=== PATIENT | male | born 1985 | race Caucasian/White ===

== ENCOUNTER → 2021-01-10 15:43 | Outpatient (CLI) | payer OTHER, SELFPAY ==
--- NOTE | 2021-01-10 15:48 | DI.ECHO.S_ITS ---
[place] +---------+ : : [address] : [address] : : : : [id number] : : : : Phone: [phone]+ Echocardiogram Report + + :Name: TANA SIERRA Study Date: 01/10/2021 Height: 68 in : :[facility] ReadingLocation: Weight: 220 lb : : Gender: Male BSA: 2.1 m2 : :: 1985 Age: 35 yrs BP: 128/81 mmHg: :Reason For Study: DYPSNEA : :Ordering Physician: JACE, : :AGUILAR Performed By: Araseli Guzman : :Referring: AGUILAR FRANCO : + + Interpretation Summary 1) Normal left ventricular thickness, size, wall motion, and systolic function (EF 55-60%). 2) Normal right ventricular size and function. 3) No significant valvular abnormalities. 4) No prior Echo available for comparison. Procedure: A two-dimensional transthoracic echocardiogram with color flow and Doppler was performed. The study quality was technically adequate. There is no prior echocardiogram noted for this patient. The patient was in sinus rhythm with heart rates between 63-79 bpm during the exam. Left Ventricle: The left ventricle is normal in size and wall thickness. The ejection fraction is estimated to be 55-60%. Left ventricular systolic function appears normal without focal wall motion abnormalities. Diastolic parameters suggest probable normal left ventricular diastolic function and normal filling pressures. Right Ventricle: The right ventricle is normal in size and function. Atria: Both atria are normal in size. There is no Doppler evidence for an interatrial shunt. Mitral Valve: The mitral valve is normal in structure and function. There is no mitral regurgitation noted. Aortic Valve: The aortic valve is trileaflet. The aortic valve opens well. There is no aortic valve stenosis. There is trace aortic regurgitation. Tricuspid Valve: The tricuspid valve is normal in structure and function. There is mild tricuspid regurgitation. Right ventricular systolic pressure is estimated to be 18.7 mmHg plus the clinically estimated CVP which cannot be estimated on this exam. Pulmonic Valve: The pulmonic valve leaflets are thin and pliable; valve motion is normal. There is no pulmonic valvular regurgitation. Great Vessels: The aortic root is normal size. The dimensions of the ascending aorta are normal. The inferior vena cava was not well visualized. Pericardium/ Pleura There is no pericardial effusion. There is no pleural effusion. MMode/2D Measurements & Calculations LVIDd: 3.8 cm LVOT diam: 2.1 cm LVIDs: 2.6 cm Ao root diam: 3.3 cm FS: 30.6 % asc Aorta Diam: 2.7 cm EPSS: 1.1 cm Ao Arch Diam (Prox Trans): 2.7 cm IVSd: 1.1 cm LVPWd: 0.91 cm LV gongora. diameter/BSA (cm/m^2): 1.8 LV sys. diameter/BSA (cm/m^2): 1.2 LA A2 area: 16.1 cm2 RA long axis: 5.2 cm LA A4 area: 16.8 cm2 RA area: 16.7 cm2 LA length (vol): 5.6 cm RA vol: 45.3 ml LA vol: 41.4 ml RA : 21.3 ml/m2 LA vol index: 19.4 ml/m2 RVD1 (basal): 3.4 cm TAPSE: 1.8 cm Doppler Measurements & Calculations Ao V2 max: 118.1 cm/sec LVOT Max Neptali: 90.5 cm/sec Ao V2 mean: 76.8 cm/sec LV V1 max P.3 mmHg Ao max P.6 mmHg LV V1 VTI: 18.0 cm Ao mean P.7 mmHg ARUN(I,D): 2.9 cm2 Ao V2 VTI: 21.5 cm ARUN(V,D): 2.6 cm2 sev ratio: 0.84 ARUN indexed to BSA (cm^2/m^2): 1.3 MV E max neptali: 61.2 cm/sec TR max neptali: 216.3 cm/sec MV A max neptali: 65.5 cm/sec TR max P.7 mmHg MV E/A: 0.93 PA V2 max: 64.7 cm/sec Med Peak E' Neptali: 11.0 cm/sec PA V2 mean: 42.0 cm/sec E/E' med: 5.6 PA mean P.84 mmHg Lat Peak E' Neptali: 13.1 cm/sec PA pr(Accel): 43.0 mmHg E/E' lat: 4.7 E/e' average: 5.1 MV dec time: 0.15 sec SV(LVOT): 61.7 ml Reading Physician:09:15 AM
== END ==
PROVIDERS: Referring Provider Internal Medicine Cardiovascular Disease; Visit Provider Internal Medicine Cardiovascular Disease
DX: R06.00 Dyspnea, unspecified (principal)
CPT/HCPCS: 93306

== ENCOUNTER 2025-10-22 05:34 | Emergency (ER) | payer OTHER, SELFPAY ==
[2025-10-22 05:43] VITALS: PULSE 111; O2SAT 98
--- NOTE | 2025-10-22 05:43 | ED.GENADULT ---
HPI - General Adult General Chief complaint: Abdominal Pain Stated complaint: Bowel discomfort, frequent urination x1 Month Time Seen by Provider: 10/22/25 05:39
[2025-10-22 05:44] VITALS: BP 185/116; PULSE 112; O2SAT 96
[2025-10-22 05:51] VITALS: BP 185/116; PULSE 90; RESP 16; TEMP 36.3; O2SAT 97; BMI 30.4
--- NOTE | 2025-10-22 05:51 | DI.CT.S_ITS ---
PROCEDURE: CT ABDOMEN PELVIS W CON INDICATIONS: abd pain/pressure/urinary frequency intermittent TECHNIQUE: After the administration of intravenous contrast, axial sections acquired from the lung bases to the pubic symphysis. Coronal and sagittal reformats were performed. For radiation dose reduction, the following was used: automated exposure control, adjustment of mA and/or kV according to patient size. COMPARISON: None. FINDINGS: Image quality: Diagnostic. Lower Chest: No significant findings. ABDOMEN: Liver: No solid mass. Gallbladder: No radiopaque gallstones or wall thickening. Biliary ducts: No biliary dilation. Pancreas: No ductal dilation. Spleen: Size is within normal limits. Adrenal Glands: No adrenal nodules. Kidneys and Ureters: No hydronephrosis. No solid mass. No complex renal cystic lesion which requires follow up. Stomach and Bowel: Normal colonic caliber, without significant wall thickening. No inflammatory changes. Peritoneum: No abnormal intraperitoneal fluid. No free air. Ventral Wall: Fat containing ventral hernia. Abdominal Nodes: No retroperitoneal or mesenteric adenopathy by size criteria. Vessels: Aorta and inferior vena cava are normal in size. PELVIS: Pelvic Organs: Unremarkable. Bladder: No bladder wall thickening, accounting for underdistention. Pelvic Nodes: No enlarged lymph nodes. Miscellaneous: Fat containing inguinal hernias are seen. Bones: No aggressive osseous abnormality. IMPRESSION: No acute intra-abdominal or pelvic process. The above findings are concordant with preliminary report. Dictated by: Any Ruggiero M.D. on 10/22/2025 at 8:35 Approved by: Any Ruggiero M.D. on 10/22/2025 at 8:36
--- NOTE | 2025-10-22 05:52 | ED_ITS ---
HPI - Abdominal Pain General Chief Complaint: Abdominal Pain Stated Complaint: Bowel discomfort, frequent urination x1 Month Time Seen by Provider: 10/22/25 05:39 Source: patient, RN notes reviewed and old records reviewed Mode of arrival: Ambulatory Limitations: no limitations History of Present Illness HPI narrative: 40-year-old male history of hypertension and GERD presents with a complaint of a abdominal pressure intermittently. Patient notes times he will be somewhat constipated but not consistently he also notes he is sometimes as difficulty with urination has frequency, denies any dysuria or sense of urgency but we will feel like he has not completely emptying his bladder. Denies fevers or chills. He has had some nausea today but no vomiting. Denies any back or bloody stools. Patient states he had to assist himself to have a bowel movement earlier today. He states he has been drinking a lot of fluids to see if that improves his symptoms. He has had about a month of symptoms but had several episodes in the past with a prior to that as well. Patient states he has had a prior appendectomy. States he takes omeprazole and a medication for hypertension. Denies any allergies to medications. No tobacco, alcohol or recreational drugs. Related Data Allergies Allergy/AdvReac Type Severity Reaction Status Date / Time No Known Drug Allergies Allergy Verified 10/22/25 06:02 Review of Systems Review of Systems ROS Unobtainable: All systems reviewed & are unremarkable except as noted in HPI and below Exam Narrative Exam Narrative: GENERAL: Alert and oriented x three, male in mild distress HEENT: Head normocephalic, atraumatic, EOMI, pupils reactive, face symmetric, moist mucous membranes NECK: Supple, full range of motion CARDIOVASCULAR: Regular rate and rhythm without murmurs, rubs or gallops. RESPIRATORY: Breath sounds equal bilaterally, no wheezes rales or rhonchi. ABDOMEN: Soft, nontender. Non-distended. Normoactive bowel sounds all 4 quadrants. No guarding or rebound, rigidity, no mass : No CVA tenderness EXTREMITIES: Normal range of motion, no clubbing or edema. Neurovascularly intact NEUROLOGICAL: Cranial nerves II through XII grossly intact. Moving all extremities SKIN: Warm, dry, no petechiae, no rashes or lesions. Initial Vital Signs Initial Vital Signs: Vital Signs Temperature 97.4 F L 10/22/25 05:51 Pulse Rate 90 10/22/25 05:51 Respiratory Rate 16 10/22/25 05:51 Blood Pressure 185/116 H 10/22/25 05:51 Pulse Oximetry 97 10/22/25 05:51 Oxygen Delivery Method Room Air 10/22/25 05:51 Course Orders Ordered: ED Orders 10/22/25 05:51 CT abdomen pelvis w con Stat Complete Blood Count AUTO DIFF Stat Comprehensive Metabolic Panel Stat Lipase Stat Vital Signs Vital signs: Vital Signs - 8 hr 10/22/25 05:51 Temperature 97.4 F L Pulse Rate 90 Respiratory Rate 16 Blood Pressure 185/116 H Pulse Oximetry 97 Oxygen Delivery Method Room Air MDM - Abdominal Pain Lab Data 10/22/25 05:52 10/22/25 05:52 Labs: Lab Results 10/22/25 Range/Units 05:52 WBC 6.4 (4.5-11.0) X10^3/uL RBC 5.58 (4.5-5.9) X10^6/uL Hgb 17.6 H (13.5-17.5) g/dL Hct 48.9 (41-53) % MCV 87.7 (80-100) fL MCH 31.4 (26-34) PG MCHC 35.9 (30-36) % RDW 13.3 (11.6-14.8) % Plt Count 141 L (150-400) X10^3/uL Neut % (Auto) 68.8 (50-75) % Lymph % (Auto) 23.1 L (25-40) % Sawyer % (Auto) 6.9 (3-14) % Eos % (Auto) 0.5 L (2-4) % Baso % (Auto) 0.7 (0-2) % Neut # (Auto) 4400 (8657-5189) /uL Lymph # (Auto) 1500 (8367-6305) /uL Sawyer # (Auto) 400 (0-900) /uL Eos # (Auto) 0 (0-450) /uL Baso # (Auto) 0 (0-100) /uL Sodium 139 (137-145) mmol/L Potassium 4.1 (3.4-5.1) mmol/L Chloride 102 (98-107) mmol/L Carbon Dioxide 25 (22-32) mmol/L BUN 12 (9-20) mg/dL Creatinine 0.89 (0.66-1.25) mg/dL Estimated GFR > 60 (>60) mL/min BUN/Creatinine Ratio 13.5 (6-22) Glucose 107 H (70-99) mg/dL Calcium 9.5 (8.4-10.2) mg/dL Total Bilirubin 2.9 H (0.2-1.3) mg/dL AST 31 (17-59) IU/L ALT 33 (<50) IU/L Alkaline Phosphatase 64 (38-126) U/L Total Protein 8.5 H (6.3-8.2) g/dL Albumin 5.2 H (3.5-5.0) g/dL Globulin 3.3 (1.7-4.1) g/dL Albumin/Globulin Ratio 1.6 (1.0-2.8) Lipase 64 (23-300) U/L Point of care testing: Urine Dip Bedside Urine Glucose Negative Bedside Urine Bilirubin - Negative Bedside Urine Ketone - Negative Urine Specific [place] 1.000 Bedside Urine Occult Blood - Negative Bedside Urine pH 6.0 Bedside Urine Protein - Negative Bedside Urine Urobilinogen - Negative Bedside Urine Nitrite - Negative Bedside Urine Leukocytes - Negative Esterase MDM Narrative Medical decision making narrative: Labs , white count of 6.4 hemoglobin is 17.6 hematocrit of 48.9 platelets are 141, chemistries are appropriate BUN and creatinine normal, glucose is 107, bilirubin is 2.9 no priors for comparison. Normal AST, normal ALT, normal alk- phos and lipase. poc urine is negative. CT abdomen/pelvis shows no acute findings appendix is surgically absent. 40-year-old male comes in with complaint of the abdominal pressure in his lower abdomen and sometimes intermittent difficulty with urination describes it sounds like some issues with the constipation labs and imaging did not show any acute changes though bilirubin is noted to be 2.9 discussed with the patient he should follow this up but he is nontender in his right upper quadrant and symptoms do not seem consistent. Reviewed findings with the patient some of his symptoms do seem to consistent with possibly constipation we will have him start a stool softener continue with hydrating regularly if still having symptoms discussed primary care or Urology to follow up with. Patient expressed understanding all questions answered. Discharge Plan Departure Patient Disposition: Home Clinical Impression: Elevated bilirubin Activity Restrictions/Additional Instructions: Follow up with your physician, your bilirubin is elevated on your labs today you should have this rechecked in the future. This is an unlikely source of your current symptoms. I do recommend you take a stool softener medications such as Colace or Dulcolax daily to see if this helps with more regular frequent bowel movements. If you are continuing to have a sensation of incomplete emptying or urinary frequency would recommend you follow up with Urology for re-evaluation. Contacts included below. Please return if you have fevers, new abdominal back or flank pain, persistent vomiting, inability urinate, painful urination, black or bloody stools or other new or concerning changes. Referrals: Tang Olea DO [Physician, Urology] Stand Alone Forms: Patient Portal/API
[2025-10-22 06:00] VITALS: PULSE 88; O2SAT 95
[2025-10-22 06:13] LABS: Alanine Aminotransferase 33 IU/L (<50); Albumin 5.2 g/dL (3.5-5.0); Albumin Globulin Ratio 1.6 (1.0-2.8); Alkaline Phosphatase 64 U/L (38-126); Blood Urea Nitrogen 12 mg/dL (9-20); Calcium 9.5 mg/dL (8.4-10.2); Carbon Dioxide 25 mmol/L (22-32); Chloride 102 mmol/L (98-107); Estimated Glomerular Filt Rate > 60 mL/min (>60); Globulin 3.3 g/dL (1.7-4.1); Glucose 107 mg/dL (70-99); HEMOLYSIS 24 (0-50); Lipase 64 U/L (23-300); Potassium 4.1 mmol/L (3.4-5.1); Sodium 139 mmol/L (137-145); Total Protein 8.5 g/dL (6.3-8.2)
[2025-10-22 06:21] VITALS: BP 137/91; PULSE 83; O2SAT 93
[2025-10-22 06:23] LABS: Add Manual Diff / Slide Review NO; Hematocrit 48.9 % (41-53); Hemoglobin 17.6 g/dL (13.5-17.5); Lymphocytes Absolute Auto 1500 /uL (1100-4500); Mean Corpuscular HGB Conc 35.9 % (30-36); Mean Corpuscular Hemoglobin 31.4 PG (26-34); Mean Corpuscular Volume 87.7 fL (80-100); Platelet Count 141 X10^3/uL (150-400)
[2025-10-22 06:30] VITALS: PULSE 87; O2SAT 96
== END 2025-10-22 07:01 | disposition home or self-care (01) ==
PROVIDERS: Emergency Provider Emergency Medicine
DX: R10.30 Lower abdominal pain, unspecified (principal); E80.6 Other disorders of bilirubin metabolism
CPT/HCPCS: 36415; 74177; 80053; 81003; 83690; 85025; 99283; 99284; Q9967